=== PATIENT | male | born 1990 | race Caucasian/White ===

== ENCOUNTER 2020-07-30 16:09 | Emergency (ER) | payer OTHER ==
[2020-07-30] MEDS ORDERED: Diazepam 5 MG Tab PO ONE ×2 (16:18→16:23)
[2020-07-30] MEDS ORDERED: LORazepam 2 MG/ML SDV IVPUSH STA (16:18)
[2020-07-30] MEDS ORDERED: Thiamine 100 MG in Sodium Chloride 0.9% 100 ML IV ONE (16:19)
[2020-07-30] MEDS ORDERED: Ondansetron 4 MG/2 ML SDV IVPUSH ONE (16:20)
[2020-07-30] MEDS ORDERED: Sodium Chloride 0.9% 1,000 ML IV SCH (16:30)
[2020-07-30] MEDS ORDERED: Pantoprazole 80 MG in Sodium Chloride 0.9% 100 ML IV SCH (16:30)
[2020-07-30] MEDS ORDERED: Pantoprazole 40 MG Vial IVPUSH ONE (16:31)
[2020-07-30] MEDS ORDERED: Dextrose 5% in Water 1,000 ML IV SCH (17:15)
[2020-07-30 17:29] LABS: BASE EXCESS VENOUS,POC 3 mmol/L (-2-3); HCO3 VENOUS,POC 26 mmol/L (21-29); PCO2 VENOUS,POC 31 mmHg (41-51); PH VENOUS,POC 7.53 pH Units (7.32-7.43)
--- NOTE | 2020-07-30 17:29 | EDM.PDOC ---
ED HPI GENERAL MEDICAL PROBLEM - General Chief Complaint: Drug or Alcohol Abuse Stated Complaint: PUCKING UP BLOOD Time Seen by Provider: 07/30/20 16:15 Source of Information: Reports: Patient History Limitations: Reports: No Limitations - History of Present Illness INITIAL COMMENTS - FREE TEXT/NARRATIVE: Patient presented to the ED because of persistent nausea and vomiting while at work. He has coffee-ground emesis several times. There is no melanotic stools, however he also c/o epigastric pain. There is no associated fever,chills, cough or cold symptoms. Patient has a history of alcoholism since age 20 and drinks 1/2-3/4 bottle of a 1 liter vodka a day. abdominal Pain Score (Numeric/FACES): 4 - Related Data Allergies Allergy/AdvReac Type Severity Reaction Status Date / Time No Known Allergies Allergy Verified 07/30/20 16:43 Home Meds: Home Meds NK [No Known Home Meds] 07/30/20 [History] Social & Family History - Tobacco Use Tobacco Use Status *Q: Current Every Day Tobacco User Years of Tobacco use: 10 Packs/Tins Daily: 1.5 - Caffeine Use Caffeine Use: Reports: None - Alcohol Use Days Per Week of Alcohol Use: 7 Number of Drinks Per Day: 15 Total Drinks Per Week: 105 Date of Last Drink: 07/29/20 Time of Last Drink: 20:00 - Recreational Drug Use Recreational Drug Use: Yes Drug Use in Last 12 Months: Yes Recreational Drug Type: Reports: Marijuana/Hashish Recreational Drug Use Frequency: Weekly ED ROS GENERAL - Review of Systems Review Of Systems: See Below Constitutional: Reports: No Symptoms HEENT: Reports: No Symptoms Respiratory: Reports: No Symptoms Cardiovascular: Reports: No Symptoms Endocrine: Reports: No Symptoms GI/Abdominal: Reports: Abdominal Pain, Nausea, Vomiting : Reports: No Symptoms Musculoskeletal: Reports: No Symptoms Skin: Reports: No Symptoms Neurological: Reports: No Symptoms Psychiatric: Reports: Anxiety Hematologic/Lymphatic: Reports: No Symptoms ED EXAM, GENERAL - Physical Exam Exam: See Below Exam Limited By: No Limitations General Appearance: Alert, No Apparent Distress Eye Exam: Bilateral Eye: Proptosis Nose: Normal Inspection, Normal Mucosa Throat/Mouth: Normal Inspection, Normal Lips, Normal Teeth Head: Atraumatic, Normocephalic Neck: Normal Inspection, Supple, Non-Tender, Full Range of Motion Respiratory/Chest: No Respiratory Distress, Lungs Clear, Normal Breath Sounds Cardiovascular: Normal Peripheral Pulses, Tachycardia GI/Abdominal: Normal Bowel Sounds, Soft, Non-Tender, No Organomegaly Back Exam: Normal Inspection, Full Range of Motion Course - Vital Signs Text/Narrative:: Labs/EKG/CXR result was discussed with patient NS 1 L bolus Zofran 4 mg IV x1 Ativan 2 mg IV x1 Valium 20 mg po x1 Thiamine 100 mg IV x1 Protonix 80 mg IV x1 Last Recorded V/S: Last Vital Signs Temp 36.7 C 07/30/20 16:15 Pulse 106 H 07/30/20 16:15 Resp 20 07/30/20 16:15 BP 148/89 H 07/30/20 16:15 Pulse Ox 100 07/30/20 16:15 - Orders/Labs/Meds Orders: Active Orders 24 hr Category Date Time Status EKG 12 Lead [EK] Routine Ther 07/30/20 16:24 Ordered Labs: Laboratory Tests 07/30/20 07/30/20 07/30/20 Range/Units 16:24 17:00 17:00 WBC 6.0 (4.5-12.0) X10-3/uL RBC 4.57 (4.30-5.75) x10(6)uL Hgb 14.1 (13.5-17.8) g/dL Hct 40.9 (30.0-51.3) % MCV 89.7 (80-96) fL MCH 30.8 (27.7-33.6) pg MCHC 34.4 (32.2-35.4) g/dL RDW 12.8 (11.5-15.5) % Plt Count 155 (125-369) X10(3)uL MPV 7.1 L (7.4-10.4) fL Neut % (Auto) 87.1 H (46-82) % Lymph % (Auto) 5.9 L (13-37) % [place] % (Auto) 5.0 (4-12) % Eos % (Auto) 0 L (1.0-5.0) % Baso % (Auto) 2 (0-2) % Neut # (Auto) 5.2 (1.6-8.3) # Lymph # (Auto) 0.4 L (0.6-5.0) # [place] # (Auto) 0.3 (0.0-1.3) # Eos # (Auto) 0.0 (0.0-0.8) # Baso # (Auto) 0.1 (0.0-0.2) # PT 11.4 H (9.0-11.1) sec INR 1.06 (1.00-1.24) POC VBG pH (7.32-7.43) pH Units POC VBG pCO2 (41-51) mmHg POC VBG HCO3 (21-29) mmol/L VBG Base Excess (-2-3) mmol/L O2 Delivery Device Sodium (135-145) mmol/L Potassium (3.5-5.3) mmol/L Chloride (100-110) mmol/L Carbon Dioxide (21-32) mmol/L BUN (7-18) mg/dL Creatinine (0.70-1.30) mg/dL Est Cr Clr Drug Dosing mL/min Estimated GFR (MDRD) (>60) BUN/Creatinine Ratio (9-20) Glucose (80-116) mg/dL Calcium (8.6-10.2) mg/dL Phosphorus (2.6-4.6) mg/dL Magnesium (1.8-2.5) mg/dL Total Bilirubin (0.1-1.3) mg/dL AST (5-25) IU/L ALT (12-36) U/L Alkaline Phosphatase (56-112) IU/L Total Protein (6.0-8.0) g/dL Albumin (3.5-5.2) g/dL Globulin g/dL Albumin/Globulin Ratio Salicylates (<2.8) mg/dL Urine Opiates Screen Negative (NEGATIVE) Ur Oxycodone Screen Negative (NEGATIVE) Ur Propoxyphene Screen Negative (NEGATIVE) Acetaminophen (<2) ug/mL Ur Barbituates Screen Negative (NEGATIVE) Ur Tricyclics Screen Negative (NEGATIVE) Ur Phencyclidine Scrn Negative (NEGATIVE) Ur Amphetamine Screen Negative (NEGATIVE) Urine MDMA Screen Negative (NEGATIVE) U Benzodiazepines Scrn Negative (NEGATIVE) U Cocaine Metab Screen Negative (NEGATIVE) U Marijuana (THC) Screen Positive H (NEGATIVE) Ethyl Alcohol (<0.03) % 07/30/20 07/30/20 07/30/20 Range/Units 17:00 17:00 17:00 WBC (4.5-12.0) X10-3/uL RBC (4.30-5.75) x10(6)uL Hgb (13.5-17.8) g/dL Hct (30.0-51.3) % MCV (80-96) fL MCH (27.7-33.6) pg MCHC (32.2-35.4) g/dL RDW (11.5-15.5) % Plt Count (125-369) X10(3)uL MPV (7.4-10.4) fL Neut % (Auto) (46-82) % Lymph % (Auto) (13-37) % [place] % (Auto) (4-12) % Eos % (Auto) (1.0-5.0) % Baso % (Auto) (0-2) % Neut # (Auto) (1.6-8.3) # Lymph # (Auto) (0.6-5.0) # [place] # (Auto) (0.0-1.3) # Eos # (Auto) (0.0-0.8) # Baso # (Auto) (0.0-0.2) # PT (9.0-11.1) sec INR (1.00-1.24) POC VBG pH 7.53 H (7.32-7.43) pH Units POC VBG pCO2 31 L (41-51) mmHg POC VBG HCO3 26 (21-29) mmol/L VBG Base Excess 3 (-2-3) mmol/L O2 Delivery Device Room air Sodium 143 (135-145) mmol/L Potassium 3.5 (3.5-5.3) mmol/L Chloride 102 (100-110) mmol/L Carbon Dioxide 26 (21-32) mmol/L BUN 6 L (7-18) mg/dL Creatinine 0.8 (0.70-1.30) mg/dL Est Cr Clr Drug Dosing 122.95 mL/min Estimated GFR (MDRD) > 60 (>60) BUN/Creatinine Ratio 7.5 L (9-20) Glucose 104 (80-116) mg/dL Calcium 9.3 (8.6-10.2) mg/dL Phosphorus 2.9 (2.6-4.6) mg/dL Magnesium 1.3 L (1.8-2.5) mg/dL Total Bilirubin 0.7 (0.1-1.3) mg/dL AST 111 H (5-25) IU/L ALT 122 H (12-36) U/L Alkaline Phosphatase 72 (56-112) IU/L Total Protein 7.8 (6.0-8.0) g/dL Albumin 4.4 (3.5-5.2) g/dL Globulin 3.4 g/dL Albumin/Globulin Ratio 1.3 Salicylates < 2.0 L (<2.8) mg/dL Urine Opiates Screen (NEGATIVE) Ur Oxycodone Screen (NEGATIVE) Ur Propoxyphene Screen (NEGATIVE) Acetaminophen < 2 L (<2) ug/mL Ur Barbituates Screen (NEGATIVE) Ur Tricyclics Screen (NEGATIVE) Ur Phencyclidine Scrn (NEGATIVE) Ur Amphetamine Screen (NEGATIVE) Urine MDMA Screen (NEGATIVE) U Benzodiazepines Scrn (NEGATIVE) U Cocaine Metab Screen (NEGATIVE) U Marijuana (THC) Screen (NEGATIVE) Ethyl Alcohol < 0.03 (<0.03) % Meds: Medications Discontinued Medications Generic Name Dose Route Start Last Admin Trade Name Freq PRN Reason Stop Dose Admin Diazepam 10 mg 07/30/20 16:18 07/30/20 16:28 Valium. PO 07/30/20 16:19 Not Given ONETIME ONE Diazepam 20 mg 07/30/20 16:23 07/30/20 16:28 Valium. PO 07/30/20 16:24 20 mg ONETIME ONE Administration Pantoprazole Sodium 80 mg/ 100 mls @ 10 mls/hr 07/30/20 16:30 Sodium Chloride IV .Continuous SAHRA Thiamine HCl 100 mg/ Sodium 101 mls @ 202 mls/hr 07/30/20 16:19 07/30/20 16:29 Chloride IV 07/30/20 16:20 202 mls/hr ONETIME ONE Administration Sodium Chloride 1,000 mls @ 999 mls/hr 07/30/20 16:30 07/30/20 16:23 Normal Saline IV 999 mls/hr ASDIRECTED SAHRA Administration Dextrose/Water 1,000 mls @ 999 mls/hr 07/30/20 17:15 07/30/20 17:36 Dextrose 5% In Water IV 999 mls/hr ASDIRECTED SAHRA Administration Dextrose/Sodium Chloride 1,000 mls @ 150 mls/hr 07/30/20 18:45 07/30/20 18:37 Dextrose 5%-Normal Saline IV 150 mls/hr ASDIRECTED SAHRA Administration Lorazepam 2 mg 07/30/20 16:18 07/30/20 16:22 Ativan IVPUSH 07/30/20 16:19 2 mg NOW STA Administration Ondansetron HCl 4 mg 07/30/20 16:20 07/30/20 16:29 Zofran IVPUSH 07/30/20 16:21 4 mg ONETIME ONE Administration Pantoprazole Sodium 80 mg 07/30/20 16:31 07/30/20 16:32 Protonix Iv IVPUSH 07/30/20 16:32 80 mg ONETIME ONE Administration Departure - Departure Time of Disposition: 18:00 Disposition: DC/Tfer to Acute Hospital 02 Condition: Good Clinical Impression: Alcohol abuse with withdrawal, UGI bleed - Discharge Information Referrals: PCP,None [Primary Care Provider] - Forms: ED Department Discharge Sepsis Event Note (ED) - Evaluation Sepsis Screening Result: No Definite Risk - My Orders Last 24 Hours: My Active Orders 07/30/20 16:24 EKG 12 Lead [EK] Routine - Assessment/Plan Last 24 Hours: My Active Orders 07/30/20 16:24 EKG 12 Lead [EK] Routine
[2020-07-30 17:39] LABS: ACETAMINOPHEN < 2 ug/mL (<2)
[2020-07-30] MEDS ORDERED: Dextrose 5%-0.9% NaCl 1,000 ML IV SCH (18:45)
--- NOTE | 2020-07-30 18:50 | CR ---
INDICATION: Persistent nausea and vomiting. CHEST, ONE VIEW: AP upright portable view of the chest was obtained 07/30/20 - no comparison. Heart, mediastinum, and bony structures unremarkable. Overlying EKG leads are noted. An active infiltrate or effusion was not identified. IMPRESSION: No active disease. MTDD
== END 2020-07-30 19:00 ==
LOC: FB.ED 16:09
DX: F10.239 Alcohol dependence with withdrawal, unspecified (principal); K92.2 Gastrointestinal hemorrhage, unspecified; F17.210 Nicotine dependence, cigarettes, uncomplicated; Y90.1 Blood alcohol level of 20-39 mg/100 ml
CPT/HCPCS: 36415; 71045; 80053; 80305; 80307; 83735; 84100; 85025; 85610; 93005; 96365; 96375; 99285; A9270; C9113; J2060; J2405; J3411; J7030; J7060; 99284